=== PATIENT | female | born 1965 | race African-American/Black ===

== ENCOUNTER 2024-06-29 10:52 | Emergency (ER) | payer MEDICAID ==
[~2024-06-29] VITALS: Ht 157.5 cm; Wt 83.0 kg
[2024-06-29 11:02] VITALS: O2SAT 99
[2024-06-29] MEDS: KETOROLAC 30MG/ML VIAL IM ONE (13:15)
[2024-06-29] MEDS ORDERED: ACET-2708 MT (14:24)
[2024-06-29] MEDS ORDERED: CYCL5TAB3 MT (14:24)
[2024-06-29] MEDS ORDERED: LIDO700A15 TP (14:24)
[2024-06-29 14:55] VITALS: BP 154/97; PULSE 76; RESP 14; TEMP 36.9; O2SAT 99
== END 2024-06-29 14:56 | disposition home or self-care (01) ==
LOC: ER 10:52
DX: S43.491A Other sprain of right shoulder joint, initial encounter (principal); S39.012A Strain of muscle, fascia and tendon of lower back, initial encounter; W18.39XA Other fall on same level, initial encounter; Y93.89 Activity, other specified; Y92.89 Other specified places as the place of occurrence of the external cause; Y99.8 Other external cause status
CPT/HCPCS: 72100; 73030; 96372; 99284; J1885; Z7610